=== PATIENT | female | born 1965 | race Caucasian/White ===

== ENCOUNTER 2017-11-23 10:08 | Emergency (ER) | payer SELFPAY ==
[~2017-11-23] VITALS: Ht 160 cm; Wt 63.5 kg
[2017-11-23] MEDS ORDERED: PROGESTERONE100 MG PO (10:21)
[2017-11-23] MEDS ORDERED: WOMEN'S DAILY1 EACH PO (10:21)
== END 2017-11-23 10:29 | disposition home or self-care (01) ==
LOC: ED 10:08
DX: R21 Rash and other nonspecific skin eruption (principal)